=== PATIENT | male | born 1980 | race Caucasian/White ===

== ENCOUNTER 2023-01-15 09:56 | Emergency (ER) | payer OTHER, SELFPAY ==
--- NOTE | ~2023-01-15 | XR_ITS ---
EXAMINATION: XR chest 2V 01/15/2023 10:17 INDICATION: Cough for 2 months PROCEDURE: 2 view chest COMPARISON: No prior studies for comparison. FINDINGS: The lungs are clear. The cardiomediastinal silhouette is within normal limits. There are no pleural effusions. There is no pneumothorax suspected. IMPRESSION: 1: NO ACUTE CARDIOPULMONARY DISEASE. Reviewed, dictated and finalized at location A.
[2023-01-15 10:09] VITALS: BP 128/90; PULSE 72; RESP 16; TEMP 36.3; O2SAT 98
--- NOTE | 2023-01-15 10:21 | ED.GENADULT ---
HPI - General Adult General Chief complaint: Upper Respiratory Infection Stated complaint: Cough Source: patient Mode of arrival: ambulatory Limitations: no limitations History of Present Illness HPI narrative: Patient presents for evaluation of cough for the last 2 months. Cough is intermittently productive of yellow sputum. He denies any fever, chills, shortness of breath, sore throat, otalgia, nausea, vomiting, diarrhea, other infectious symptoms. He initially thought his symptoms may be COVID as his 2 children had COVID back in October. He took a COVID test which was negative. He does not smoke. He has tried dayquil and nyquil for his symptoms with minimal improvement thereafter. Related Data Allergies Allergy/AdvReac Type Severity Reaction Status Date / Time meclizine Allergy Unknown Dizziness Verified 01/15/23 10:08 Review of Systems Review of Systems: CONSTITUTIONAL: Denies fever, chills, or sweats. EYES: Denies visual changes, redness, or discharge. ENT: Denies rhinorrhea, congestion, sore throat, or otalgia. CARDIOVASCULAR: Denies chest pain, palpitations, or edema. RESPIRATORY: Reports cough. Denies SOB GASTROINTESTINAL: Denies abdominal pain, nausea, vomiting, or diarrhea. GENITOURINARY: Denies dysuria or hematuria. SKIN: Denies rash or itching. MUSCULOSKELETAL: Denies back pain, joint pain, or myalgia. NEUROLOGIC: Denies headache, numbness, dizziness, or weakness. PSYCHIATRIC: Denies anxiety or depression. [facility] Past Medical History Medical History (Updated 01/15/23 @ 10:30 by Jer Guevara, MAYO, ) No pertinent past medical history Surgical History Surgical History No pertinent past surgical history Family History Family History Mother Family history non-contributory Social History Social History Smoking status: Never smoker Substance use: never Living arrangements: with family Gender identity (if verbalized by the patient): Male Sexual Orientation (if Verbalized by the Patient): Straight or Heterosexual Spiritual care concerns: No Exam Narrative: GENERAL: Well-appearing, well-nourished, and in no acute distress. HEAD: Normocephalic, atraumatic. EYES: PERRLA and EOMI. ENT: Nares clear, no rhinorrhea or epistaxis. Mucous membranes moist. Oropharynx without tonsillar hypertrophy exudate or other lesions. Bilateral TMs pearly schwarz nonbulging NECK: Supple. No adenopathy or masses. No carotid bruits or JVD CHEST: Clear to auscultation however lung sounds are diminished throughout. No respiratory distress. No wheezes rales or rhonchi HEART: Regular rate and rhythm. No murmur heard. Normal peripheral pulses. ABDOMEN: Soft, nontender, nondistended, normal active bowel sounds. EXTREMITIES: Normal range of motion. No edema. SKIN: Warm, dry, no rash. NEURO: No focal deficits. Alert and oriented x3. PSYCH: Normal mood and affect. Course Course Emergency Course: This is a 42-year-old male who presented for evaluation of cough for the last few months. Chest x-ray was normal. He has no shortness of breath or decreased oxygen saturations to suggest PE. Etiology unclear. I did advise that he try sleeping with a humidifier. Try OTC allergy medication. Tea with honey may help. Will discharge with Tessalon. Advise he follow up with his primary care provider to determine whether additional testing as clinically warranted. Level of Care: Express Care Visit Vital Signs Vital signs: Vital Signs Temperature 36.3 C L 01/15/23 10:09 Pulse Rate 72 01/15/23 10:09 Respiratory Rate 16 01/15/23 10:09 Blood Pressure 128/90 01/15/23 10:09 Pulse Oximetry 98 01/15/23 10:09 Temperature 36.3 C L 01/15/23 10:09 Pulse Rate 72 01/15/23 10:09 Respiratory Rate 16 01/15/23 10:09
== END 2023-01-15 10:39 | disposition home or self-care (01) ==
PROVIDERS: Emergency Provider Nurse Practitioner; PCP Student in an Organized Health Care Education/Training Program
DX: R05.3 Chronic cough (principal)
CPT/HCPCS: 71046; 99203; G0463